=== PATIENT | female | born 1930 | race Caucasian/White ===

== ENCOUNTER 2018-07-21 14:29 | Emergency (ER) | payer BC, OTHER ==
[~2018-07-21] VITALS: Ht 157.5 cm; Wt 104.3 kg
[~2018-07-21 14:29] MED LIST: ALBU90OI; ALBUIS INH; AMIT10 PO; AMIT25 PO; AMLO10 PO; AMLO5 PO; ASPI325 PO; ASPI81CH PO; ATIVAN; ATOR40TA PO; AZIT250 PO; BUDE.5 INH; BUDE6HFA INH; CHOL10002 PO; CLON.1 PO; COMBIVENT RESPIM4 GM INH; DOCU100 PO; HYDCHL25; HYDR1TAB94 PO; HYDROCHLOROTHIAZIDE; LAVAP17G PO; LEVFLO500 PO; LISI20; LISI5 PO; LISINOPRIL; LORA1; LORA1 PO; Lopressor 25 mg25 MG PO; METR500 PO; MULVITMIND PO; NYST100SU PO; Neurontin300 MG PO; OMNICEF; Omeprazole20 M1; POTASSIUM CL; PRED10 PO; PROM25 PO; PSEHYDGUAL PO
[2018-07-21] MEDS ORDERED: LOSA50 PO (15:02)
[2018-07-21] MEDS ORDERED: HYDCHL12.5 PO (15:03)
[2018-07-21 15:22] LABS: BASOPHILS ABSOLUTE AUTO 0.03 K/mm3 (0.00-0.23); BASOPHILS PERCENT AUTO 0 % (0-2); EOSINOPHILS ABSOLUTE AUTO 0.03 K/mm3 (0.00-0.68); EOSINOPHILS PERCENT AUTO 0 % (0-6); Hematocrit 38.1 % (33.0-51.0); Hemoglobin 12.1 g/dL (11.5-16.0); IMMATURE GRAN ABSOLUTE AUTO 0.03 K/mm3 (0.00-0.10); IMMATURE GRAN PERCENT AUTO 0 % (0-1); LYMPHOCYTES ABSOLUTE AUTO 2.08 K/mm3 (0.84-5.20); LYMPHOCYTES PERCENT AUTO 23 % (21-46); MONOCYTES ABSOLUTE AUTO 0.99 K/mm3 (0.16-1.47); MONOCYTES PERCENT AUTO 11 % (4-13); Mean Corpuscular HGB 28.9 pg (26.0-34.0); Mean Corpuscular HGB Conc 31.8 g/dL (31.5-36.5); Mean Corpuscular Volume 91 fL (80-100); Mean Platelet Volume 11.2 fL (9.1-12.4); NEUTROPHILS PERCENT AUTO 65 % (41-73); Platelet Count 227 K/mm3 (150-400); RDW Coefficient Variation 12.5 % (11.7-14.2); RDW Standard Deviation 41.1 fL (35.1-46.3); Red Blood Cell Count 4.19 M/mm3 (3.80-5.20); White Blood Cell Count 9.06 K/mm3 (4.00-11.30)
[2018-07-21 15:40] LABS: Albumin, Blood 3.7 g/dL (3.4-5.0); Albumin/Globulin Ratio 1.1 (0.8-1.8); Bilirubin, Total 0.4 mg/dL (0.1-1.0); Calcium, Blood 9.3 mg/dL (8.5-10.1); Creatinine, Blood 1.25 mg/dL (0.40-1.00); Globulin, Blood 3.3 g/dL (2.2-4.0); Potassium, Blood 4.3 mmol/L (3.5-5.5)
== END 2018-07-21 19:07 | disposition home or self-care (01) ==
LOC: ER 14:29
PROVIDERS: Physician Assistant
DX: J44.9 Chronic obstructive pulmonary disease, unspecified (principal); Z88.0 Allergy status to penicillin; Z88.8 Allergy status to other drugs, medicaments and biological substances; Z79.899 Other long term (current) drug therapy; Z79.82 Long term (current) use of aspirin; I10 Essential (primary) hypertension; E78.5 Hyperlipidemia, unspecified; F32.9 Major depressive disorder, single episode, unspecified; F17.200 Nicotine dependence, unspecified, uncomplicated
CPT/HCPCS: 36415; 71046; 71260; 80053; 83880; 84484; 85025; 93005; 93010; 96360-59; 96361; 99284-25; J7030; Q9967

== ENCOUNTER 2018-10-26 15:52 | Inpatient (IN) | payer MEDICARE, SELFPAY ==
[~2018-10-26] VITALS: Ht 157.5 cm; Wt 108.2 kg
[~2018-10-26 15:52] MED LIST changes: +HYDCHL12.5 PO; +LOSA50 PO
[2018-10-26 16:28] LABS: BASOPHILS ABSOLUTE AUTO 0.03 K/mm3 (0.00-0.23); BASOPHILS PERCENT AUTO 0 % (0-2); EOSINOPHILS ABSOLUTE AUTO 0.03 K/mm3 (0.00-0.68); EOSINOPHILS PERCENT AUTO 0 % (0-6); Hematocrit 43.5 % (33.0-51.0); Hemoglobin 13.7 g/dL (11.5-16.0); IMMATURE GRAN ABSOLUTE AUTO 0.08 K/mm3 (0.00-0.10); IMMATURE GRAN PERCENT AUTO 1 % (0-1); LYMPHOCYTES ABSOLUTE AUTO 2.44 K/mm3 (0.84-5.20); LYMPHOCYTES PERCENT AUTO 20 % (21-46); MONOCYTES PERCENT AUTO 3 % (4-13); Mean Corpuscular HGB 29.2 pg (26.0-34.0); Mean Corpuscular HGB Conc 31.5 g/dL (31.5-36.5); Mean Corpuscular Volume 93 fL (80-100); Mean Platelet Volume 10.8 fL (9.1-12.4); NEUTROPHILS ABSOLUTE AUTO 9.22 K/mm3 (1.96-9.15); NEUTROPHILS PERCENT AUTO 76 % (41-73); Platelet Count 333 K/mm3 (150-400); RDW Coefficient Variation 12.4 % (11.7-14.2); RDW Standard Deviation 42.2 fL (35.1-46.3); Red Blood Cell Count 4.69 M/mm3 (3.80-5.20)
[2018-10-26 16:51] LABS: Alanine Aminotransfer (ALT/SGP 21 U/L (12-78); Albumin, Blood 3.7 g/dL (3.4-5.0); Alk Phos 68 U/L (50-136); Anion Gap 13 mmol/L (6-16); Aspartate Aminotrans (AST/SGOT 31 U/L (12-37); Blood Urea Nitrogen 22 mg/dL (8-24); Bun/Creatinine Ratio 14.8 (12.0-20.0); CO2, Blood 24 mmol/L (21-32); Calcium, Blood 9.7 mg/dL (8.5-10.1); Chloride, Blood 99 mmol/L (98-108); Creatinine, Blood 1.49 mg/dL (0.40-1.00); Globulin, Blood 3.6 g/dL (2.2-4.0); Glomerular Filtration Rate 35 (60-); Glucose, Blood 268 mg/dL (70-99); Potassium, Blood 4.7 mmol/L (3.5-5.5); Sodium, Blood 136 mmol/L (136-145); Total Protein, Blood 7.3 g/dL (6.4-8.2); Troponin I <0.015 ng/mL (0.000-0.040)
[2018-10-26] MEDS ORDERED: LORA1 PO (17:53)
[2018-10-26] MEDS ORDERED: ZESTORETIC 20-251 EA (17:53)
[2018-10-26 17:55] LABS: Base Excess Venous -11.2 mmol/L; Bicarbonate Venous 16.5 mmol/L (24.0-30.0); PCO2 Venous 31.5 mmHg (38-42); PO2 Venous 160 mmHg (38-42)
--- NOTE | 2018-10-27 06:35 | NUR ---
a+o, ns still infusing at 75 ml/h, 2L via nc, no major medical changes noted during shift, nausea but no diarrha reported during shift, cooperative with staff, will continue to montitor and treat until provide bsr to day shift nurse
[2018-10-27 08:34] LABS: BASOPHILS ABSOLUTE AUTO 0.03 K/mm3 (0.00-0.23); BASOPHILS PERCENT AUTO 0 % (0-2); EOSINOPHILS PERCENT AUTO 0 % (0-6); Hemoglobin 11.9 g/dL (11.5-16.0); IMMATURE GRAN ABSOLUTE AUTO 0.14 K/mm3 (0.00-0.10); IMMATURE GRAN PERCENT AUTO 1 % (0-1); LYMPHOCYTES ABSOLUTE AUTO 1.51 K/mm3 (0.84-5.20); LYMPHOCYTES PERCENT AUTO 7 % (21-46); MONOCYTES ABSOLUTE AUTO 1.15 K/mm3 (0.16-1.47); MONOCYTES PERCENT AUTO 6 % (4-13); Mean Corpuscular HGB 29.2 pg (26.0-34.0); Mean Corpuscular HGB Conc 32.2 g/dL (31.5-36.5); Mean Corpuscular Volume 91 fL (80-100); Mean Platelet Volume 10.3 fL (9.1-12.4); NEUTROPHILS PERCENT AUTO 86 % (41-73); Platelet Count 303 K/mm3 (150-400); RDW Coefficient Variation 12.5 % (11.7-14.2); RDW Standard Deviation 41.1 fL (35.1-46.3); Red Blood Cell Count 4.08 M/mm3 (3.80-5.20); White Blood Cell Count 20.33 K/mm3 (4.00-11.30)
[2018-10-27 08:55] LABS: Albumin, Blood 3.3 g/dL (3.4-5.0); Bilirubin, Total 0.4 mg/dL (0.1-1.0); Bun/Creatinine Ratio 17.2 (12.0-20.0); Calcium, Blood 8.3 mg/dL (8.5-10.1); Creatinine, Blood 2.32 mg/dL (0.40-1.00); Globulin, Blood 3.4 g/dL (2.2-4.0); Potassium, Blood 3.9 mmol/L (3.5-5.5); Total Protein, Blood 6.7 g/dL (6.4-8.2)
[2018-10-27 10:59] LABS: International Normalized Ratio 1.04
--- NOTE | 2018-10-27 13:01 | NUR ---
NURSING PCU DAYSHIFT: Assumed care of pt at approx 1230. Arrived from medical unit via bed accompanied by staff x2. General weakness noted, assistance required for repositioning. Denies any pain/discomfort at rest. Skin is fragile, no breakdown noted, scattered bruises to UE's. Tele in place, NSR, no c/o CP/pressure, SBP 130's, trace BLE edema. L/S dim t/o w/minimal air movement noted, c/o dyspnea w/minimal exertion, O2 sat mid 90's on 3L NC, occ productive cough. Abd significantly distended, BT tympanic, and firm and nontender, voiding w/o difficulty per pt. PIV x1, hep gtt infusing at 15u/kg/hr (22.8 mls/hr) per pharmacy dosing. NS w/KCL scheduled to infuse at 75cc/hr once additional IV access is obtained. Daughters x2 currently at bedside. Pt and daughters deny any current needs or questions regarding plan of care. Call light in reach and pt is able to use w/o difficulty. RT at bedside for assessment and breathing tx. No s/s of acute distress at this time, cont to monitor for any changes.
--- NOTE | 2018-10-27 13:19 | NUR ---
TRANSFER NOTE HANDOFF REPORT GIVEN AT BEDSIDE TO PCU NURSE OLSON. PT TRANSFERED WITH HEPARIN DRIP RUNNING ORDERED. PT TRANSFERED WITH O2 RUNNING ORDERED. PERSONAL POSSESSIONS GATHERED BY FAMILY AND TRANSFERED WITH THEM. I AND THE VERTICAL MILL OPERATOR ACCOMPANIED THE PT TO PCU. NURSE OLSON HAD NO FURTHER QUESTIONS.
--- NOTE | 2018-10-27 16:00 | NUR ---
echocardiogram complete
--- NOTE | 2018-10-27 17:29 | NUR ---
NURSING PCU DAYSHIFT SUMMARY: No significant changes noted t/o the shift. Respiratory and cardiac status unchanged. Pt spent much of the afternoon sitting on edge of bed visiting w/family. No EKG changes noted, denies dizziness/light headedness. Chest CT, LE doppler, f/u troponin, and ECHO completed as ordered, results discussed w/PMD, new d/o received. Cardiology consult called for a.m., hep gtt and IVF continue to infuse, pt updated regarding plan of care. No s/s of acute distress at this time. Pt denies any current questions/needs. Call light in reach, cont to monitor until rpt is given to NOC RN.
[2018-10-27 20:43] LABS: Source, Urine Clean Catch
[2018-10-27 20:45] LABS: Appearance, Urine Clear (Clear); Bilirubin, Urine Neg (Neg); Blood, Urine Neg (Neg); Color, Urine Amber (P-Yellow); Glucose Qualitative, Urine Neg (Neg); Ketones, Urine Neg (Neg); Leukocyte Esterase, Urine Neg (Neg); Nitrite, Urine Neg (Neg); Protein, Urine Neg (Neg); Specific Gravity, Urine 1.015 (1.003-1.022); Urobilinogen, Urine NORM (Normal)
[2018-10-28 05:36] LABS: BASOPHILS ABSOLUTE AUTO 0.04 K/mm3 (0.00-0.23); BASOPHILS PERCENT AUTO 0 % (0-2); EOSINOPHILS PERCENT AUTO 0 % (0-6); Hematocrit 35.3 % (33.0-51.0); Hemoglobin 11.3 g/dL (11.5-16.0); IMMATURE GRAN ABSOLUTE AUTO 0.18 K/mm3 (0.00-0.10); IMMATURE GRAN PERCENT AUTO 1 % (0-1); LYMPHOCYTES ABSOLUTE AUTO 1.17 K/mm3 (0.84-5.20); LYMPHOCYTES PERCENT AUTO 5 % (21-46); MONOCYTES ABSOLUTE AUTO 1.27 K/mm3 (0.16-1.47); MONOCYTES PERCENT AUTO 6 % (4-13); Mean Corpuscular HGB 29.4 pg (26.0-34.0); Mean Corpuscular Volume 92 fL (80-100); NEUTROPHILS PERCENT AUTO 88 % (41-73); Platelet Count 302 K/mm3 (150-400); RDW Coefficient Variation 12.6 % (11.7-14.2); RDW Standard Deviation 42.4 fL (35.1-46.3); Red Blood Cell Count 3.84 M/mm3 (3.80-5.20); White Blood Cell Count 21.96 K/mm3 (4.00-11.30)
[2018-10-28 05:52] LABS: International Normalized Ratio 0.99; Prothrombin Time Results 10.5 Sec (9.7-11.5)
[2018-10-28 06:00] LABS: Magnesium, Blood 2.4 mg/dL (1.6-2.4); Troponin I 0.36 ng/mL (0.000-0.040)
[2018-10-28 06:03] LABS: Albumin, Blood 3.3 g/dL (3.4-5.0); Albumin/Globulin Ratio 0.9 (0.8-1.8); Bilirubin, Total 0.4 mg/dL (0.1-1.0); Bun/Creatinine Ratio 23.5 (12.0-20.0); Calcium, Blood 8.6 mg/dL (8.5-10.1); Creatinine, Blood 1.62 mg/dL (0.40-1.00); Globulin, Blood 3.7 g/dL (2.2-4.0); Potassium, Blood 5.4 mmol/L (3.5-5.5)
--- NOTE | 2018-10-28 07:55 | NUR ---
SHIFT SUMMARY PATIENT PLEASENT THROUGHOUT THE NIGHT. AT THE BEGINNING OF THE NIGHT PATIENT STARTED GETTING ANXIOUS ABOUT HOW ALL THE TESTS WERE NOT GIVING HER ANSWERS TO WHAT WAS GOING ON WITH HER. PATIENT STATED SHE NO LONGER WANTED TO HAVE HER HEPARIN RUNNING. RN TALKED WITH PATIENT ABOUT IMPORTANCE OF HEPARIN AND THE PROS AND CONS ABOUT STOPPING THE HEPARIN. AFTER THE CONVERSATION PATIENT AGREED TO KEEP THE HEPARIN RUNNING THROUGHOUT THE NIGHT AND TO TALK WITH THE DR ABOUT IT IN THE MORNING. PATIENT APPEARED TO SLEEP WELL THROUGHOUT THE NIGHT. PATIENT STATED THAT SHE DID SLEEP BETTER TONIGHT THAN THE PREVIOUS NIGHT. IV FLUIDS AND HEPARIN RUNNING PER ORDERS. VITAL SIGNS CHARTED. PATIENT UP TO THE BATHROOM SEVERAL TIMES WITH FWW AND SBA FOR LINES. REPORT GIVEN TO ONCOMING RN.
--- NOTE | 2018-10-28 18:59 | NUR ---
PT HAD A GOOD DAY TODAY, DR ORDERED BLOOD CULTURES AND RESP PANEL, SENT SWAB TO LAB AND WILL AWAIT ORDERS. STARTED ABX PER ORDER. PT FAMILY AT BEDSIDE THROUGHOUT THE DAY. PT CURRENTLY ON 1 LPM O2 VIA NC. WORKED ON TITRATING DOWN O2 AND EDUCATING ON O2 LEVELS AT REST. WHEN PT LYING IN BED, O2 SAT IS 95-98%, PT UNDERSTANDS USE WHEN GETTING UP AND WILL MONITOR O2 LEVELS AT REST AND PERHAPS FOLLOW UP WITH HER ONLINE TUTOR. PT UP WITH FWW TO BATHROOM. USES CALL LIGHT APPROPRIATELY AND EXPRESSED NEEDS. WILL CONTINUE TO MONITOR AND GIVE REPORT TO NOC RN.
[2018-10-28 19:50] LABS: Adenovirus Not Detected (NOT DETECT); Bordetella pertussis Not Detected (NOT DETECT); Chlamydophila pneumoniae Not Detected (NOT DETECT); Coronavirus 229E Not Detected (NOT DETECT); Coronavirus HKU1 Not Detected (NOT DETECT); Coronavirus NL63 Not Detected (NOT DETECT); Coronavirus OC43 Not Detected (NOT DETECT); Human Metapneumovirus Not Detected (NOT DETECT); Human Rhinovirus/Enterovirus Not Detected (NOT DETECT); Influenza A Not Detected (NOT DETECT); Influenza A/2009-H1 Not Detected (NOT DETECT); Influenza A/H1 Not Detected (NOT DETECT); Influenza A/H3 Not Detected (NOT DETECT); Influenza B Not Detected (NOT DETECT); Mycoplasma pneumoniae Not Detected (NOT DETECT); Parainfluenza Virus 1 Not Detected (NOT DETECT); Parainfluenza Virus 2 Not Detected (NOT DETECT); Parainfluenza Virus 3 Not Detected (NOT DETECT); Parainfluenza Virus 4 Not Detected (NOT DETECT); Respiratory Syncytial Virus Not Detected (NOT DETECT)
[2018-10-29 04:43] LABS: BASOPHILS ABSOLUTE AUTO 0.04 K/mm3 (0.00-0.23); BASOPHILS PERCENT AUTO 0 % (0-2); EOSINOPHILS PERCENT AUTO 0 % (0-6); Hematocrit 34.3 % (33.0-51.0); Hemoglobin 10.6 g/dL (11.5-16.0); IMMATURE GRAN ABSOLUTE AUTO 0.33 K/mm3 (0.00-0.10); IMMATURE GRAN PERCENT AUTO 2 % (0-1); LYMPHOCYTES ABSOLUTE AUTO 0.96 K/mm3 (0.84-5.20); LYMPHOCYTES PERCENT AUTO 5 % (21-46); MONOCYTES ABSOLUTE AUTO 1.78 K/mm3 (0.16-1.47); MONOCYTES PERCENT AUTO 10 % (4-13); Mean Corpuscular HGB 28.6 pg (26.0-34.0); Mean Corpuscular HGB Conc 30.9 g/dL (31.5-36.5); Mean Corpuscular Volume 93 fL (80-100); Mean Platelet Volume 10.3 fL (9.1-12.4); NEUTROPHILS ABSOLUTE AUTO 15.69 K/mm3 (1.96-9.15); NEUTROPHILS PERCENT AUTO 83 % (41-73); NRBC ABSOLUTE 0.02 K/mm3 (0.00-0.02); NRBC Auto 0.1 /100 WBC (0.0-0.2); Platelet Count 264 K/mm3 (150-400); RDW Coefficient Variation 12.9 % (11.7-14.2); RDW Standard Deviation 43.6 fL (35.1-46.3); Red Blood Cell Count 3.71 M/mm3 (3.80-5.20)
[2018-10-29 04:59] LABS: Albumin, Blood 3.2 g/dL (3.4-5.0); Anion Gap 7 mmol/L (6-16); Blood Urea Nitrogen 35 mg/dL (8-24); Bun/Creatinine Ratio 24.8 (12.0-20.0); CO2, Blood 28 mmol/L (21-32); Calcium, Blood 8.9 mg/dL (8.5-10.1); Chloride, Blood 104 mmol/L (98-108); Creatinine, Blood 1.41 mg/dL (0.40-1.00); Glomerular Filtration Rate 38 (60-); Glucose, Blood 96 mg/dL (70-99); Magnesium, Blood 2.2 mg/dL (1.6-2.4); Phosphorus, Blood 2.8 mg/dL (2.5-4.9); Potassium, Blood 4.4 mmol/L (3.5-5.5); Sodium, Blood 139 mmol/L (136-145)
--- NOTE | 2018-10-29 06:14 | NUR ---
SHIFT SUMMARY PATIENT PLEASENT AND COOPERATIVE THROUGHOUT THE NIGHT. PATIENT APPEARED TO SLEEP WELL LAST NIGHT. PATIENT STATED THAT SHE FEELS SHE SLEPT WELL. PATIENT UP TO THE BATHROOM WITH SBA AND FWW SEVERAL TIMES. IV FLUIDS RUNNING PER ORDERS. PATIENT CURRENTLY SITTING UP AT THE EDGE OF THE BED, CALL LIGHT WITHIN REACH. VITAL SIGNS CHARTED. WILL CONTINUE TO MONITOR PATIENT AND REPORT TO ONCOMING RN.
[2018-10-29] MEDS ORDERED: CARV3.125 PO (12:03)
[2018-10-29] MEDS ORDERED: LEVFLO500 PO (12:05)
[2018-10-29] MEDS ORDERED: MIRALAX17 GM PO (12:10)
--- NOTE | 2018-10-29 12:55 | NUR ---
DISCHARGE NOTE PT STABLE FOR DISCHARGE. POWERGLIDE REMOVED. DISCHARGE INSTRUCTIONS REVIEWED WITH PT AND FAMILY. PT AND FAMILY VERBALIZE UNDERSTANDING AND DENY QUESTIONS. PT DISCHARGED VIA WHEELCHAIR TO WAITING CAR.
== END 2018-10-29 13:05 | disposition home or self-care (01) | DRG 189 ==
LOC: ER 15:52 → PCU 18:09 → MEDS 18:09 → PCU 10-27 12:19
PROVIDERS: Emergency Medicine; Internal Medicine Gastroenterology; ADMIT Internal Medicine
DX: J96.21 Acute and chronic respiratory failure with hypoxia (principal); I21.19 ST elevation (STEMI) myocardial infarction involving other coronary artery of inferior wall; J44.1 Chronic obstructive pulmonary disease with (acute) exacerbation; N17.9 Acute kidney failure, unspecified; R65.10 Systemic inflammatory response syndrome (SIRS) of non-infectious origin without acute organ dysfunction; R79.89 Other specified abnormal findings of blood chemistry; Z99.81 Dependence on supplemental oxygen; E78.5 Hyperlipidemia, unspecified; H40.9 Unspecified glaucoma; F17.210 Nicotine dependence, cigarettes, uncomplicated; K59.09 Other constipation; K21.9 Gastro-esophageal reflux disease without esophagitis; I12.9 Hypertensive chronic kidney disease with stage 1 through stage 4 chronic kidney disease, or unspecified chronic kidney disease; N18.3 Chronic kidney disease, stage 3 (moderate)
CPT/HCPCS: 0099U; 36415; 71045; 71046; 78582; 80053; 80069; 81003; 82803; 83735; 83880; 84145; 84484; 85025; 85379; 85610; 85730; 87040; 93005; 93010; 93308; 93321; 93970; 94640; 94760; 96361; 96374; 96375; 99285-25; A9540; A9558; C1751; J1644; J1956; J2405; J2930; J3480; J7030

== ENCOUNTER 2020-01-05 02:18 | Inpatient (IN) | payer MEDICARE ==
[~2020-01-05] VITALS: Ht 157.5 cm; Wt 111.1 kg
[~2020-01-05 02:18] MED LIST changes: +CARV3.125 PO; +MIRALAX17 GM PO; +ZESTORETIC 20-251 EA
[2020-01-05 02:46] LABS: BASOPHILS ABSOLUTE AUTO 0.02 K/mm3 (0.00-0.23); BASOPHILS PERCENT AUTO 0 % (0-2); EOSINOPHILS ABSOLUTE AUTO 0.26 K/mm3 (0.00-0.68); EOSINOPHILS PERCENT AUTO 2 % (0-6); Hematocrit 35.5 % (33.0-51.0); Hemoglobin 10.8 g/dL (11.5-16.0); IMMATURE GRAN ABSOLUTE AUTO 0.04 K/mm3 (0.00-0.10); IMMATURE GRAN PERCENT AUTO 0 % (0-1); LYMPHOCYTES ABSOLUTE AUTO 3.31 K/mm3 (0.84-5.20); LYMPHOCYTES PERCENT AUTO 31 % (21-46); MONOCYTES ABSOLUTE AUTO 1.44 K/mm3 (0.16-1.47); MONOCYTES PERCENT AUTO 13 % (4-13); Mean Corpuscular HGB 28.3 pg (26.0-34.0); Mean Corpuscular HGB Conc 30.4 g/dL (31.5-36.5); Mean Corpuscular Volume 93 fL (80-100); Mean Platelet Volume 10.7 fL (9.1-12.4); NEUTROPHILS ABSOLUTE AUTO 5.69 K/mm3 (1.96-9.15); NEUTROPHILS PERCENT AUTO 53 % (41-73); Platelet Count 230 K/mm3 (150-400); RDW Coefficient Variation 12.9 % (11.7-14.2); Red Blood Cell Count 3.81 M/mm3 (3.80-5.20); White Blood Cell Count 10.76 K/mm3 (4.00-11.30)
[2020-01-05 03:07] LABS: Alanine Aminotransfer (ALT/SGP 18 U/L (12-78); Albumin, Blood 3.4 g/dL (3.4-5.0); Albumin/Globulin Ratio 0.9 (0.8-1.8); Alk Phos 69 U/L (50-136); Anion Gap 3 mmol/L (6-16); Aspartate Aminotrans (AST/SGOT 22 U/L (12-37); Bilirubin, Total 0.4 mg/dL (0.1-1.0); Blood Urea Nitrogen 23 mg/dL (8-24); Bun/Creatinine Ratio 17.3 (12.0-20.0); CO2, Blood 39 mmol/L (21-32); Calcium, Blood 9.8 mg/dL (8.5-10.1); Chloride, Blood 98 mmol/L (98-108); Creatinine, Blood 1.33 mg/dL (0.40-1.00); Globulin, Blood 3.7 g/dL (2.2-4.0); Glomerular Filtration Rate 40 (60-); Glucose, Blood 123 mg/dL (70-99); Potassium, Blood 3.8 mmol/L (3.5-5.5); Sodium, Blood 140 mmol/L (136-145); Total Protein, Blood 7.1 g/dL (6.4-8.2); Troponin I <0.015 ng/mL (0.000-0.040)
[2020-01-05] MEDS ORDERED: AMLO5 PO (05:11)
[2020-01-05] MEDS ORDERED: HYDCHL25 PO (05:11)
[2020-01-05] MEDS ORDERED: LOSA50 PO (05:13)
[2020-01-05] MEDS ORDERED: AZIT250 PO (05:16)
[2020-01-05] MEDS ORDERED: ATOR20 PO (05:16)
[2020-01-05] MEDS ORDERED: Amitriptyline H25 MG PO (06:12)
[2020-01-05] MEDS ORDERED: ASPI325 PO (06:13)
[2020-01-05] MEDS ORDERED: Vitamin D2000 UNIT PO (06:14)
[2020-01-05 11:20] LABS: Adenovirus Not Detected (NOT DETECT); Bordetella pertussis Not Detected (NOT DETECT); Chlamydophila pneumoniae Not Detected (NOT DETECT); Coronavirus 229E Not Detected (NOT DETECT); Coronavirus HKU1 Not Detected (NOT DETECT); Coronavirus NL63 Not Detected (NOT DETECT); Coronavirus OC43 Not Detected (NOT DETECT); Human Metapneumovirus Not Detected (NOT DETECT); Human Rhinovirus/Enterovirus Not Detected (NOT DETECT); Influenza A/2009-H1 Not Detected (NOT DETECT); Influenza A/H1 Not Detected (NOT DETECT); Influenza A/H3 Not Detected (NOT DETECT); Influenza B Not Detected (NOT DETECT); Mycoplasma pneumoniae Not Detected (NOT DETECT); Parainfluenza Virus 1 Not Detected (NOT DETECT); Parainfluenza Virus 2 Not Detected (NOT DETECT); Parainfluenza Virus 3 Not Detected (NOT DETECT); Parainfluenza Virus 4 Not Detected (NOT DETECT); Respiratory Syncytial Virus Not Detected (NOT DETECT); SARS-Cov-2 (COVID-19), BioFire Not Detected (NOT DETECT)
--- NOTE | 2020-01-05 17:17 | NUR ---
SHIFT SUMMARY PATIENT ALERT AND ORIENTED. SHE IS INDEPENDENT IN THE ROOM. CALLS APPRORPIATELY. AT HOME THE PATIENT WEARS 2L O2 VIA NC. SHE IS CURRENTLY ON 3L O2 VIA NC. SHE DENIES CHEST DISCOMFORT OR SHORTNESS OF BREATH AT THIS TIME. SHE DOES NOTE THAT SHE IS DYSPNEIC UPON EXERTION.
--- NOTE | 2020-01-06 04:12 | NUR ---
CARGO HANDLER SUMMARY PT DENIED ANY CHEST PAIN OR SOB DURING THE SHIFT. PT'S O2 SAT'S ARE >89 ON 3L VIA NC. PT DENIED ANY PAIN OR NAUSEA DURING THE NIGHT. PT VERBALIZED THAT SHE HOPES TO GO HOME BUT IS APPREHENSIVE ABOUT HER OXYGEN SATURATION DROPPING AGAIN ONCE SHE RETURNS HOME. PT WAS EDUCATED ON THE S/S OF HYPOXIA AND REPORTED THAT SHE HAS A FINGER BIOX AT HOME BUT NEEDS TO GET A NEW ONE. PT IS RESTING COMFORTABLY W CALL LIGHT WITHIN REACH.
[2020-01-06 05:09] LABS: BASOPHILS ABSOLUTE AUTO 0.02 K/mm3 (0.00-0.23); BASOPHILS PERCENT AUTO 0 % (0-2); EOSINOPHILS PERCENT AUTO 0 % (0-6); Hematocrit 31.6 % (33.0-51.0); Hemoglobin 9.8 g/dL (11.5-16.0); IMMATURE GRAN ABSOLUTE AUTO 0.14 K/mm3 (0.00-0.10); IMMATURE GRAN PERCENT AUTO 1 % (0-1); LYMPHOCYTES ABSOLUTE AUTO 1.13 K/mm3 (0.84-5.20); LYMPHOCYTES PERCENT AUTO 7 % (21-46); MONOCYTES ABSOLUTE AUTO 0.38 K/mm3 (0.16-1.47); MONOCYTES PERCENT AUTO 2 % (4-13); Mean Corpuscular HGB 27.9 pg (26.0-34.0); Mean Corpuscular Volume 90 fL (80-100); Mean Platelet Volume 11.2 fL (9.1-12.4); NEUTROPHILS ABSOLUTE AUTO 14.38 K/mm3 (1.96-9.15); NEUTROPHILS PERCENT AUTO 90 % (41-73); Platelet Count 235 K/mm3 (150-400); RDW Coefficient Variation 12.8 % (11.7-14.2); Red Blood Cell Count 3.51 M/mm3 (3.80-5.20); White Blood Cell Count 16.05 K/mm3 (4.00-11.30)
[2020-01-06 05:30] LABS: Albumin, Blood 3.2 g/dL (3.4-5.0); Anion Gap 5 mmol/L (6-16); Blood Urea Nitrogen 28 mg/dL (8-24); Bun/Creatinine Ratio 26.7 (12.0-20.0); CO2, Blood 35 mmol/L (21-32); Calcium, Blood 9.7 mg/dL (8.5-10.1); Chloride, Blood 97 mmol/L (98-108); Creatinine, Blood 1.05 mg/dL (0.40-1.00); Glomerular Filtration Rate 53 (60-); Glucose, Blood 157 mg/dL (70-99); Magnesium, Blood 2.1 mg/dL (1.6-2.4); Phosphorus, Blood 2.8 mg/dL (2.5-4.9); Potassium, Blood 3.1 mmol/L (3.5-5.5); Sodium, Blood 137 mmol/L (136-145)
[2020-01-06] MEDS ORDERED: AZIT200SU PO (15:08)
[2020-01-06] MEDS ORDERED: HYDCHL25 PO (15:10)
[2020-01-06] MEDS ORDERED: POTA10T PO (15:11)
[2020-01-06] MEDS ORDERED: ALBU2.5V5 INH (15:12)
[2020-01-06] MEDS ORDERED: Prednisone10 MG PO (15:14)
[2020-01-06] MEDS ORDERED: TIOT18 INH (15:17)
[2020-01-06] MEDS ORDERED: SYMBICORT 160-4.6 GM INH (15:19)
== END 2020-01-06 15:51 | disposition home or self-care (01) | DRG 189 ==
LOC: ER 02:18 → MEDS 04:56 → ER 05:46 → MEDS 05:58
PROVIDERS: Emergency Medicine; Internal Medicine Gastroenterology; ADMIT Internal Medicine
DX: J96.21 Acute and chronic respiratory failure with hypoxia (principal); J44.1 Chronic obstructive pulmonary disease with (acute) exacerbation; Z68.41 Body mass index [BMI] 40.0-44.9, adult; J96.22 Acute and chronic respiratory failure with hypercapnia; I12.9 Hypertensive chronic kidney disease with stage 1 through stage 4 chronic kidney disease, or unspecified chronic kidney disease; N18.30 Chronic kidney disease, stage 3 unspecified; G47.33 Obstructive sleep apnea (adult) (pediatric); I87.2 Venous insufficiency (chronic) (peripheral); Z20.828 Contact with and (suspected) exposure to other viral communicable diseases; E78.5 Hyperlipidemia, unspecified; F41.9 Anxiety disorder, unspecified; Z87.891 Personal history of nicotine dependence; Z79.82 Long term (current) use of aspirin
CPT/HCPCS: 0202U; 36415; 71046; 80053; 80069; 82947; 83735; 83880; 84484; 85025; 93005; 93010; 94640; 94644; 94760; 97110; 97116; 97161; 99285-25; A9270-GY; J0456; J0696; J1650; J2930; J7050

== ENCOUNTER 2020-11-09 04:07 | Emergency (ER) | payer MEDICARE ==
[~2020-11-09] VITALS: Ht 157.5 cm; Wt 103.9 kg
[~2020-11-09 04:07] MED LIST changes: +ALBU2.5V5 INH; +ATOR20 PO; +AZIT200SU PO; +Amitriptyline H25 MG PO; +HYDCHL25 PO; +POTA10T PO; +Prednisone10 MG PO; +SYMBICORT 160-4.6 GM INH; +TIOT18 INH; +Vitamin D2000 UNIT PO
[2020-11-09 04:33] LABS: BASOPHILS ABSOLUTE AUTO 0.03 K/mm3 (0.00-0.23); BASOPHILS PERCENT AUTO 0 % (0-2); EOSINOPHILS PERCENT AUTO 0 % (0-6); Hemoglobin 12.1 g/dL (11.5-16.0); IMMATURE GRAN PERCENT AUTO 1 % (0-1); LYMPHOCYTES ABSOLUTE AUTO 1.57 K/mm3 (0.84-5.20); LYMPHOCYTES PERCENT AUTO 11 % (21-46); MONOCYTES PERCENT AUTO 7 % (4-13); Mean Corpuscular HGB 28.4 pg (26.0-34.0); Mean Corpuscular HGB Conc 31.8 g/dL (31.5-36.5); Mean Corpuscular Volume 89 fL (80-100); NEUTROPHILS PERCENT AUTO 81 % (41-73); Platelet Count 248 K/mm3 (150-400); RDW Coefficient Variation 13.2 % (11.7-14.2); RDW Standard Deviation 42.7 fL (35.1-46.3); Red Blood Cell Count 4.26 M/mm3 (3.80-5.20)
[2020-11-09 04:47] LABS: Alanine Aminotransfer (ALT/SGP 21 U/L (12-78); Albumin, Blood 3.5 g/dL (3.4-5.0); Albumin/Globulin Ratio 1.1 (0.8-1.8); Alk Phos 65 U/L (50-136); Anion Gap 4 mmol/L (6-16); Aspartate Aminotrans (AST/SGOT 9 U/L (12-37); Bilirubin, Total 0.3 mg/dL (0.1-1.0); Blood Urea Nitrogen 29 mg/dL (8-24); Bun/Creatinine Ratio 20.7 (12.0-20.0); CO2, Blood 36 mmol/L (21-32); Calcium, Blood 10.3 mg/dL (8.5-10.1); Chloride, Blood 101 mmol/L (98-108); Globulin, Blood 3.1 g/dL (2.2-4.0); Glomerular Filtration Rate 35 (60-); Glucose, Blood 133 mg/dL (70-99); Potassium, Blood 3.4 mmol/L (3.5-5.5); Sodium, Blood 141 mmol/L (136-145); Total Protein, Blood 6.6 g/dL (6.4-8.2); Troponin I <0.015 ng/mL (0.000-0.040)
== END 2020-11-09 07:15 | disposition home or self-care (01) ==
LOC: ER 04:07
PROVIDERS: Emergency Medicine
DX: I48.0 Paroxysmal atrial fibrillation (principal); J44.9 Chronic obstructive pulmonary disease, unspecified; I10 Essential (primary) hypertension; D72.829 Elevated white blood cell count, unspecified; E87.6 Hypokalemia; Z88.0 Allergy status to penicillin; Z91.048 Other nonmedicinal substance allergy status; Z79.82 Long term (current) use of aspirin; Z79.899 Other long term (current) drug therapy; Z99.81 Dependence on supplemental oxygen
CPT/HCPCS: 36415; 71045; 80053; 84484; 85025; 93005; 93010; 99285-25

== ENCOUNTER 2021-10-26 07:49 | Inpatient (IN) | payer MEDICARE ==
[~2021-10-26] VITALS: Ht 157.5 cm; Wt 110.7 kg
[~2021-10-26 07:49] MED LIST changes: +CEFD300 PO; +OMEP20ER PO; +XARELTO20 MG PO
[2021-10-26 09:06] LABS: BASOPHILS ABSOLUTE AUTO 0.02 K/mm3 (0.00-0.23); BASOPHILS PERCENT AUTO 0 % (0-2); EOSINOPHILS PERCENT AUTO 0 % (0-6); Hematocrit 26.4 % (33.0-51.0); Hemoglobin 8.2 g/dL (11.5-16.0); IMMATURE GRAN ABSOLUTE AUTO 0.09 K/mm3 (0.00-0.10); IMMATURE GRAN PERCENT AUTO 1 % (0-1); LYMPHOCYTES ABSOLUTE AUTO 0.71 K/mm3 (0.84-5.20); LYMPHOCYTES PERCENT AUTO 4 % (21-46); MONOCYTES ABSOLUTE AUTO 1.79 K/mm3 (0.16-1.47); MONOCYTES PERCENT AUTO 11 % (4-13); Mean Corpuscular HGB 28.6 pg (26.0-34.0); Mean Corpuscular HGB Conc 31.1 g/dL (31.5-36.5); Mean Corpuscular Volume 92 fL (80-100); Mean Platelet Volume 11.3 fL (9.1-12.4); NEUTROPHILS ABSOLUTE AUTO 14.29 K/mm3 (1.96-9.15); NEUTROPHILS PERCENT AUTO 85 % (41-73); Platelet Count 217 K/mm3 (150-400); RDW Coefficient Variation 13.2 % (11.7-14.2); RDW Standard Deviation 44.5 fL (35.1-46.3); Red Blood Cell Count 2.87 M/mm3 (3.80-5.20)
[2021-10-26 09:15] LABS: Albumin, Blood 3.1 g/dL (3.4-5.0); Bilirubin, Total 0.7 mg/dL (0.1-1.0); Calcium, Blood 9.6 mg/dL (8.5-10.1); Creatinine, Blood 1.96 mg/dL (0.40-1.00); Globulin, Blood 3.2 g/dL (2.2-4.0); Potassium, Blood 5.1 mmol/L (3.5-5.5); Total Protein, Blood 6.3 g/dL (6.4-8.2)
--- NOTE | 2021-10-26 17:08 | NUR ---
ER ADMIT 1305 Patient admitted for cellultis RLE. Patient AOx4, forgetful at times but answers questions appropriately. Recurrent falls, bruising/discoloration through out body. Wound to right delt, melo in place, scant yellow drainage observed. Posterior RUE, large skin tear, open. Nonadherent dressings placed over wounds. BLE pitting +2 edema in legs & feet. LLE skin color is pale, scaley. RLE is rudding, bruised. C/o right rib pain from recent fall. MD assessed patient at bedside, ordered ultrasound, labs, results pending. Saturations stable on 3L oxygen, afebrile.
--- NOTE | 2021-10-26 20:44 | NUR ---
[facility] TECH HERE TO TAKE TO RADIOLOGY.
--- NOTE | 2021-10-26 23:16 | NUR ---
IV ANTIBIOTIC INFUSED. NOTE DRESSING OF RIGHT UPPER ARM COMING OFF, NOTE CLEAR, BLOODY DRAINAGE ON DRESSING AND PILLOW CASE. DRESSING CHANGED, PILLOW CHANGED. CALL LIGHT IN REACH.
--- NOTE | 2021-10-27 03:50 | NUR ---
PANEL SEWER SUMMARY IV ANTIBIOTIC INFUSED AT SHIFT COMMENCE AFTER RETURNING TO [facility] FROM RADIOLOGY FOR X-RAY. VOICED SOME PAIN OF LEFT RIB AREA. REPORTEDLY HAD FALLEN PRIOR TO ADMISSION TO HOSPITAL. BILAT LOWER EXT CELLULITIS - RIGHT LOWER LEG FRONT AND BACK, LEFT SIDE - BACK OF CALF S/S CELLULITIS. ALSO NOTED OPEN ABRASION OF RIGHT UPPER EXT, ON EXTERIOR SIDE. SOME BLEEDING NOTED, PREVIOUS DRESSING CHANGED. HAS BEEN REPOSITIONED TO AND FROM BACK TO LEFT SIDE SHE VOICED NOT COMFORTABLE ON RIGHT SIDE. TOLERATES "ICE WATER", VOICED DIDNT WANT RESUCITATION IF SHE STOPPED BREATHING. AGREED TO SPEAK WITH THE MD IN THE AM TO CHANGE CURRENT STATUS. WILL HAVE AM NURSE FOLLOW UP. CALL LIGHT IN REACH.
[2021-10-27 05:03] LABS: BASOPHILS ABSOLUTE AUTO 0.01 K/mm3 (0.00-0.23); BASOPHILS PERCENT AUTO 0 % (0-2); EOSINOPHILS PERCENT AUTO 0 % (0-6); Hematocrit 21.4 % (33.0-51.0); Hemoglobin 6.7 g/dL (11.5-16.0); IMMATURE GRAN ABSOLUTE AUTO 0.05 K/mm3 (0.00-0.10); IMMATURE GRAN PERCENT AUTO 0 % (0-1); LYMPHOCYTES ABSOLUTE AUTO 0.89 K/mm3 (0.84-5.20); LYMPHOCYTES PERCENT AUTO 7 % (21-46); MONOCYTES ABSOLUTE AUTO 1.39 K/mm3 (0.16-1.47); MONOCYTES PERCENT AUTO 11 % (4-13); Mean Corpuscular HGB 28.8 pg (26.0-34.0); Mean Corpuscular HGB Conc 31.3 g/dL (31.5-36.5); Mean Corpuscular Volume 92 fL (80-100); Mean Platelet Volume 11.2 fL (9.1-12.4); NEUTROPHILS ABSOLUTE AUTO 10.62 K/mm3 (1.96-9.15); NEUTROPHILS PERCENT AUTO 82 % (41-73); Platelet Count 179 K/mm3 (150-400); RDW Coefficient Variation 13.3 % (11.7-14.2); RDW Standard Deviation 44.4 fL (35.1-46.3); Red Blood Cell Count 2.33 M/mm3 (3.80-5.20); White Blood Cell Count 12.96 K/mm3 (4.00-11.30)
[2021-10-27 05:50] LABS: Albumin, Blood 2.7 g/dL (3.4-5.0); Albumin/Globulin Ratio 0.9 (0.8-1.8); Bilirubin, Total 0.6 mg/dL (0.1-1.0); Bun/Creatinine Ratio 24.7 (12.0-20.0); Calcium, Blood 8.8 mg/dL (8.5-10.1); Creatinine, Blood 2.31 mg/dL (0.40-1.00); Globulin, Blood 2.9 g/dL (2.2-4.0); Magnesium, Blood 2.4 mg/dL (1.6-2.4); Total Protein, Blood 5.6 g/dL (6.4-8.2)
--- NOTE | 2021-10-27 18:39 | NUR ---
PATIENT UP MULTIPLE TIMES TODAY TO CHAIR. WORKED WITH PT AND OT. UP WITH FWW, GB AND 1-2 ASSIST DEPENDEING ON PAIN LEVEL. PAIN CONTROLLED WITH NORCO AND TYLENOL. VSS, ON 2-3LO2. DRESSING PLACED OVER LISA TO R UPPER ARM. DRESSING TO R ELBOW AREA REMAINS C/D/I. PATIENT TOLERATING CARDIAC DIET. A/OX3, BUT FORGETFUL AT TIMES. CALM AND COOPERATIVE WITH CARE, CALLS APPROPRIATELY FOR ASSISTANCE. 20G IV TO R AC WNL, NS @ 100 ML/HR INFUSING. DAUGHTERS AT BEDSIDE FOR MOST OF THE DAY ASSISTING WITH CARE.
[2021-10-27] MEDS ORDERED: AMIT25 PO (19:16)
[2021-10-27 20:41] LABS: Vancomycin, Trough 13.6 ug/mL (5.0-10.0)
--- NOTE | 2021-10-28 05:12 | NUR ---
SHIFT SUMMARY: PATIENT REPORTS PAIN IN LEFT RIBS 8-9/10 WITH MOVEMENT. PATIENT IS MEDICATED WITH NORCO AND REPORTS GOOD EFFECT. PATIENT IS A HEAVY ASSIST X2 WITH GAIT BELT AND FWW.
[2021-10-28 05:57] LABS: BASOPHILS ABSOLUTE AUTO 0.01 K/mm3 (0.00-0.23); BASOPHILS PERCENT AUTO 0 % (0-2); EOSINOPHILS ABSOLUTE AUTO 0.01 K/mm3 (0.00-0.68); EOSINOPHILS PERCENT AUTO 0 % (0-6); Hematocrit 21.7 % (33.0-51.0); Hemoglobin 6.5 g/dL (11.5-16.0); IMMATURE GRAN ABSOLUTE AUTO 0.05 K/mm3 (0.00-0.10); IMMATURE GRAN PERCENT AUTO 0 % (0-1); LYMPHOCYTES PERCENT AUTO 10 % (21-46); MONOCYTES ABSOLUTE AUTO 1.47 K/mm3 (0.16-1.47); MONOCYTES PERCENT AUTO 12 % (4-13); Mean Corpuscular HGB 27.8 pg (26.0-34.0); Mean Corpuscular Volume 93 fL (80-100); Mean Platelet Volume 11.3 fL (9.1-12.4); NEUTROPHILS ABSOLUTE AUTO 9.69 K/mm3 (1.96-9.15); NEUTROPHILS PERCENT AUTO 78 % (41-73); Platelet Count 206 K/mm3 (150-400); RDW Coefficient Variation 13.3 % (11.7-14.2); RDW Standard Deviation 44.8 fL (35.1-46.3); Red Blood Cell Count 2.34 M/mm3 (3.80-5.20); White Blood Cell Count 12.43 K/mm3 (4.00-11.30)
[2021-10-28 06:46] LABS: Bun/Creatinine Ratio 26.4 (12.0-20.0); Calcium, Blood 8.9 mg/dL (8.5-10.1); Creatinine, Blood 2.35 mg/dL (0.40-1.00); Potassium, Blood 4.7 mmol/L (3.5-5.5)
--- NOTE | 2021-10-28 18:14 | NUR ---
SHIFT SUMMARY NO ACUTE CHANGES DURING SHIFT. PT ALERT AND ORIENTED, FOLLOWS COMMANDS. PT RECEIVED 1 UNIT PRBC'S TODAY FOR HGB OF 6.5. SWELLING TO RUE STILL PRESENT, WHEEPING TO SKIN TEAR, DRESSING CHANGED. REDNESS AND BRUSING NOTED TO RLE, FAMILY NOTES IMPROVEMENT. PT RECEIVING LASIX IV BID TODAY. INCREASED URINE OUTPUT. PT AWAITING CLEARANCE FOR DISCHARGE TO FACILITY.
[2021-10-29 05:12] LABS: BASOPHILS ABSOLUTE AUTO 0.01 K/mm3 (0.00-0.23); BASOPHILS PERCENT AUTO 0 % (0-2); EOSINOPHILS ABSOLUTE AUTO 0.01 K/mm3 (0.00-0.68); EOSINOPHILS PERCENT AUTO 0 % (0-6); Hematocrit 23.4 % (33.0-51.0); Hemoglobin 7.4 g/dL (11.5-16.0); IMMATURE GRAN ABSOLUTE AUTO 0.03 K/mm3 (0.00-0.10); IMMATURE GRAN PERCENT AUTO 0 % (0-1); LYMPHOCYTES ABSOLUTE AUTO 0.69 K/mm3 (0.84-5.20); LYMPHOCYTES PERCENT AUTO 8 % (21-46); MONOCYTES PERCENT AUTO 12 % (4-13); Mean Corpuscular HGB 28.5 pg (26.0-34.0); Mean Corpuscular HGB Conc 31.6 g/dL (31.5-36.5); Mean Corpuscular Volume 90 fL (80-100); Mean Platelet Volume 11.1 fL (9.1-12.4); NEUTROPHILS ABSOLUTE AUTO 7.39 K/mm3 (1.96-9.15); NEUTROPHILS PERCENT AUTO 80 % (41-73); Platelet Count 207 K/mm3 (150-400); RDW Coefficient Variation 13.9 % (11.7-14.2); RDW Standard Deviation 45.5 fL (35.1-46.3); White Blood Cell Count 9.23 K/mm3 (4.00-11.30)
--- NOTE | 2021-10-29 05:13 | NUR ---
SHIFT SUMMARY: PATIENT TRANSFERS FROM CHAIR TO BED WITH ASSIST X2, FWW AND GAIT BELT. DURING THE HOURS OF SLEEP PATIENT CALLED FOR ASSIST OOB AND WAS ABLE TO GET TO THE BSC WITH AX2 BUT HAD A DIFFICULT TIME TRANSFERING BACK TO THE BED. LEGS JUST BUCKLED. PATIENT WAS ASSISTED TO A SEATING POSITION ON THE EGDE OF THE BED. PERWICK WAS SET UP TO USE DURING THE NIGHT WHEN PATTIENT IS TIRED. PATIENT CONTINUES TO REPORT PAIN IN LEFT RIBS. NORCO AND TYLENOL GIVEN TOGETHER PROVIDE GOOD PAIN CONTROL.
[2021-10-29 05:50] LABS: Anion Gap 5 mmol/L (6-16); Blood Urea Nitrogen 63 mg/dL (8-24); Bun/Creatinine Ratio 27.6 (12.0-20.0); CO2, Blood 37 mmol/L (21-32); Calcium, Blood 9.5 mg/dL (8.5-10.1); Chloride, Blood 97 mmol/L (98-108); Creatinine, Blood 2.28 mg/dL (0.40-1.00); Glomerular Filtration Rate 20 (60-); Glucose, Blood 122 mg/dL (70-99); Potassium, Blood 4.5 mmol/L (3.5-5.5); Sodium, Blood 139 mmol/L (136-145)
[2021-10-29 12:25] LABS: Influenza A, PCR NEGATIVE (NEGATIVE); Influenza B, PCR NEGATIVE (NEGATIVE); Resp Syncytial Virus, PCR NEGATIVE (NEGATIVE); SARS-Cov-2 (COVID-19) PCR, MMC NEGATIVE (NEGATIVE)
--- NOTE | 2021-10-29 18:25 | NUR ---
SHIFT SUMMARY NO ACUTE CHANGES DURING SHIFT. PT ALERT AND ORIENTED, FOLLOWS COMMANDS. DRESSING CONTINUES TO WHEEP, DRESSING CHANGED MULTIPLE TIMES DURING SHIFT. CONTINUE IV LASIX BID, IMPROVEMENT IN SWELLING. [facility], PLAN TO DC TOMORROW.
--- NOTE | 2021-10-30 04:56 | NUR ---
SHIFT SUMMARY AOX4-SELF, PLACE, SITUATION, DATE, FOLLOWING DIRECTIONS. SLOW TO RESPOND TO QUESTIONS, HOWEVER ANSWERS APPROPRIATE. VSS. SPO2 >92% ON 2L O2 (BASELINE), LS DIM IN BASES, E/U RESP, REPORTS ORTHOPNEA. RLE RED, WARM TO TOUCH c +3 EDEMA. +2 EDEMA LLE, GENERALIZED DEPENDENT EDEMA T/O BODY. ELEVATED FEET. ARMS ARE LESS EDEMATOUS COMPARED TO YESTERDAY, RECIEVING IV LASIX. BRUISING T/O L SIDE TORSO. R UNDER ARM LISA & BANDAGE C/D/I. 2 PER c GB & FWW FOR TRANSFER. REPORTS 5/10 PAIN IN LEGS & L SIDE TORSO, MEDICATED 1X c TYLENOL & HYDROCODONE, PT ABLE TO FALL ASLEEP & REST COMFORTABLY. PLAN TO POSS DC TO [facility] TODAY. CALL LIGHT IN REACH & PT ABLE TO MAKE NEEDS KNOWN.
[2021-10-30 06:11] LABS: Vancomycin, Random 14.5 ug/mL
[2021-10-30 12:37] LABS: Bun/Creatinine Ratio 28.5 (12.0-20.0); Calcium, Blood 10.2 mg/dL (8.5-10.1); Creatinine, Blood 1.86 mg/dL (0.40-1.00); Potassium, Blood 4.6 mmol/L (3.5-5.5)
--- NOTE | 2021-10-30 18:28 | NUR ---
SHIFT SUMMARY NO ACUTE CHANGES DURING SHIFT. PT ALERT AND ORIENTED, FOLLOWS COMMANDS. PT REMAINS ON IV LASIX, ADEQUATE OUTPUT. PT UNABLE TO TOLERATE JACLYN HOSE APPLICATION, ERNESTINA WRAPS TO BLE INSTEAD. PRN PAIN MEDICATION ADMINISTERED FOR L RIB PAIN X 1. PT TO REMAIN ON IV LASIX FOR WEEKEND AND PLAN FOR D/C TO FACILITY ON MONDAY.
--- NOTE | 2021-10-31 05:02 | NUR ---
SHIFT SUMMARY AOX4-SELF, PLACE, SITUATION, DATE, FOLLOWING DIRECTIONS. VSS. REPORTS PAIN IN L SIDE & LEGS, DENIES N/V OR DYSPNEA. SPO2 >90% ON 3L O2. HAS ORTHOPNEA. +2 EDEMA BLE. DEPENDENT EDEMA T/O HIPS. STRICT I&O, RECIEVING LASIX. BANDAGES C/D/I, CHANGED ON DAYS 10/30. PLAN TO [facility] MORE THEN DC TO [facility] BEGINNING OF THE WEEK. CALL LIGHT IN REACH.
[2021-10-31 06:05] LABS: BASOPHILS ABSOLUTE AUTO 0.01 K/mm3 (0.00-0.23); BASOPHILS PERCENT AUTO 0 % (0-2); EOSINOPHILS ABSOLUTE AUTO 0.04 K/mm3 (0.00-0.68); EOSINOPHILS PERCENT AUTO 1 % (0-6); Hematocrit 23.7 % (33.0-51.0); Hemoglobin 7.3 g/dL (11.5-16.0); IMMATURE GRAN ABSOLUTE AUTO 0.02 K/mm3 (0.00-0.10); IMMATURE GRAN PERCENT AUTO 0 % (0-1); LYMPHOCYTES ABSOLUTE AUTO 0.92 K/mm3 (0.84-5.20); LYMPHOCYTES PERCENT AUTO 11 % (21-46); MONOCYTES ABSOLUTE AUTO 1.18 K/mm3 (0.16-1.47); MONOCYTES PERCENT AUTO 14 % (4-13); Mean Corpuscular HGB 28.2 pg (26.0-34.0); Mean Corpuscular HGB Conc 30.8 g/dL (31.5-36.5); Mean Corpuscular Volume 92 fL (80-100); Mean Platelet Volume 11.6 fL (9.1-12.4); NEUTROPHILS ABSOLUTE AUTO 6.22 K/mm3 (1.96-9.15); NEUTROPHILS PERCENT AUTO 74 % (41-73); Platelet Count 256 K/mm3 (150-400); RDW Coefficient Variation 13.2 % (11.7-14.2); RDW Standard Deviation 43.5 fL (35.1-46.3); Red Blood Cell Count 2.59 M/mm3 (3.80-5.20); White Blood Cell Count 8.39 K/mm3 (4.00-11.30)
[2021-10-31 06:25] LABS: Anion Gap 9 mmol/L (6-16); Blood Urea Nitrogen 48 mg/dL (8-24); CO2, Blood 37 mmol/L (21-32); Calcium, Blood 9.6 mg/dL (8.5-10.1); Chloride, Blood 95 mmol/L (98-108); Glomerular Filtration Rate 31 (60-); Glucose, Blood 110 mg/dL (70-99); Potassium, Blood 3.9 mmol/L (3.5-5.5); Sodium, Blood 141 mmol/L (136-145); Vancomycin, Random 17.9 ug/mL
--- NOTE | 2021-10-31 12:37 | NUR ---
ACCEPTED CARE AND COMFORT OF THIS PATIENT AT 1155 TODAY. PATIENT IS VERBAL. AO X 3. DAUGHTER AT BEDSIDE. PAITENT IS INCONTINENT OF BOWEL AND BLADDER. PER REPORT SHE INSISTS ON GETTING UP TO BEDSIDE COMMODE HOWEVER IS UNABLE TO BEAR WEIGHT. WILL PLACE ATTENDS ON PATIENT AND ENCOURAGE HER TO USE BEDPAN FOR SAFETY SINCE SHE IS A FALL RISK AND RISK FOR STAFF INJURY. CALL LIGHT IS IN REACH. AFTERNOON MEAL AT BEDSIDE. PATIENT ON 3 LITERS O2.
--- NOTE | 2021-10-31 12:40 | NUR ---
TRANSFER NOTE PT TRANSFERRED OUT OF SCU INTO MED FLOOR ROOM 357. REPORT GIVEN TO PAULINO COX RN. PT AxOx4. PLEASANT AND COOPERATIVE WITH CARE. PT'S DAUGHTER IN ROOM THIS AM, UPDATED ON PLAN OF CARE BY PROVIDER. VITALS REVIEWED. AM MEDS GIVEN. ASSESSMENT COMPLETED AND CHARTED. WOUND CARE/DRESSING CHANGES NOT COMPLETE. PAULINO NOTIFIED, WILL DO THE DRESSING CHANGES THIS SHIFT. PT SAFELY ESCORTED OUT VIA BED WITH BEST SECOND JOBS'S.
--- NOTE | 2021-11-01 00:26 | NUR ---
REPORT GIVEN TO Roberto EASON RN PRIOR TO TRANSFER TO ROOM 311. NO CHANGES FROM 2330 ASSESSMENT. GABY PHILIP
--- NOTE | 2021-11-01 05:08 | NUR ---
PT MOVED TO ROOM 310 AT 0020. LIFT SHEET PLACED UNDER PATIENT TO ASSIST IN MOVING PATIENT IN BED. PT USES FEMALE URINAL WITH ASSIST.
[2021-11-01 05:59] LABS: BASOPHILS PERCENT AUTO 0 % (0-2); EOSINOPHILS ABSOLUTE AUTO 0.02 K/mm3 (0.00-0.68); EOSINOPHILS PERCENT AUTO 0 % (0-6); Hemoglobin 7.8 g/dL (11.5-16.0); IMMATURE GRAN ABSOLUTE AUTO 0.02 K/mm3 (0.00-0.10); IMMATURE GRAN PERCENT AUTO 0 % (0-1); LYMPHOCYTES ABSOLUTE AUTO 0.71 K/mm3 (0.84-5.20); LYMPHOCYTES PERCENT AUTO 9 % (21-46); MONOCYTES ABSOLUTE AUTO 1.04 K/mm3 (0.16-1.47); MONOCYTES PERCENT AUTO 13 % (4-13); Mean Corpuscular HGB 28.6 pg (26.0-34.0); Mean Corpuscular HGB Conc 31.2 g/dL (31.5-36.5); Mean Corpuscular Volume 92 fL (80-100); Mean Platelet Volume 11.2 fL (9.1-12.4); NEUTROPHILS ABSOLUTE AUTO 6.33 K/mm3 (1.96-9.15); NEUTROPHILS PERCENT AUTO 78 % (41-73); Platelet Count 296 K/mm3 (150-400); RDW Coefficient Variation 13.5 % (11.7-14.2); RDW Standard Deviation 43.9 fL (35.1-46.3); Red Blood Cell Count 2.73 M/mm3 (3.80-5.20); White Blood Cell Count 8.12 K/mm3 (4.00-11.30)
[2021-11-01 06:22] LABS: Anion Gap 6 mmol/L (6-16); Blood Urea Nitrogen 44 mg/dL (8-24); Bun/Creatinine Ratio 25.6 (12.0-20.0); CO2, Blood 40 mmol/L (21-32); Calcium, Blood 10.3 mg/dL (8.5-10.1); Chloride, Blood 92 mmol/L (98-108); Creatinine, Blood 1.72 mg/dL (0.40-1.00); Glomerular Filtration Rate 28 (60-); Glucose, Blood 122 mg/dL (70-99); Potassium, Blood 3.5 mmol/L (3.5-5.5); Sodium, Blood 138 mmol/L (136-145); Vancomycin, Random 18.9 ug/mL
--- NOTE | 2021-11-01 11:42 | NUR ---
DR WYNN REQUEST PT RE-EVAL AND WORK WITH HER. CHECK STATUS FOR D/C. ALSO HOME O2 EVAL. TO SEE IF NEED INCREASED O2. CARE MGMT STATES SNF WILL DO IS ON O2 NOW.
--- NOTE | 2021-11-01 18:37 | NUR ---
PT PLEASANT TODAY. FAMILY IN MUCH OF DAY. ALL PLEASANT TODAY. DR STATES EXPECTING D/C TOMORROW TO SNF. PT WANTED LEG WRAP OFF TODAY. PT ABLE TO AMBULATE SHORT TO BSC WITH 1 ASST. MOSTLY SELF, WE THERE FOR ASSISTANCE IF NEEDS SUPPORT. NO NEW CONCNERS NOTED. BED IN LOW POSITION, CALL LITE IN REACH, CALLSAPPROP
[2021-11-02 01:07] LABS: SARS-Cov-2 (COVID-19) PCR, MMC NEGATIVE (NEGATIVE)
[2021-11-02 05:00] LABS: BASOPHILS ABSOLUTE AUTO 0.01 K/mm3 (0.00-0.23); BASOPHILS PERCENT AUTO 0 % (0-2); EOSINOPHILS ABSOLUTE AUTO 0.06 K/mm3 (0.00-0.68); EOSINOPHILS PERCENT AUTO 1 % (0-6); Hematocrit 24.9 % (33.0-51.0); Hemoglobin 7.6 g/dL (11.5-16.0); IMMATURE GRAN ABSOLUTE AUTO 0.02 K/mm3 (0.00-0.10); IMMATURE GRAN PERCENT AUTO 0 % (0-1); LYMPHOCYTES ABSOLUTE AUTO 1.14 K/mm3 (0.84-5.20); LYMPHOCYTES PERCENT AUTO 14 % (21-46); MONOCYTES ABSOLUTE AUTO 1.11 K/mm3 (0.16-1.47); MONOCYTES PERCENT AUTO 14 % (4-13); Mean Corpuscular HGB Conc 30.5 g/dL (31.5-36.5); Mean Corpuscular Volume 92 fL (80-100); Mean Platelet Volume 10.6 fL (9.1-12.4); NEUTROPHILS ABSOLUTE AUTO 5.88 K/mm3 (1.96-9.15); NEUTROPHILS PERCENT AUTO 72 % (41-73); Platelet Count 323 K/mm3 (150-400); RDW Coefficient Variation 13.4 % (11.7-14.2); RDW Standard Deviation 43.8 fL (35.1-46.3); Red Blood Cell Count 2.71 M/mm3 (3.80-5.20); White Blood Cell Count 8.22 K/mm3 (4.00-11.30)
[2021-11-02 05:15] LABS: Anion Gap 6 mmol/L (6-16); Blood Urea Nitrogen 45 mg/dL (8-24); Bun/Creatinine Ratio 24.1 (12.0-20.0); CO2, Blood 44 mmol/L (21-32); Calcium, Blood 9.6 mg/dL (8.5-10.1); Chloride, Blood 90 mmol/L (98-108); Creatinine, Blood 1.87 mg/dL (0.40-1.00); Glomerular Filtration Rate 25 (60-); Glucose, Blood 115 mg/dL (70-99); Potassium, Blood 3.2 mmol/L (3.5-5.5); Sodium, Blood 140 mmol/L (136-145); Vancomycin, Random 19.7 ug/mL
--- NOTE | 2021-11-02 06:21 | NUR ---
SHIFT SUMMARY NOC: PT SLEPT MOST OF NIGHT. 1A FWW TO BSC. NO PRN PAIN MEDS GIVEN. PT ON 3L NC. PT TO DC TO SNF TODAY. COVID NEGATIVE. NO ACUTE EVENTS.
[2021-11-02] MEDS ORDERED: FURO20 PO (11:25)
[2021-11-02] MEDS ORDERED: METO25ER PO (11:26)
[2021-11-02] MEDS ORDERED: Norco 10-325 T1 EACH PO (11:26)
--- NOTE | 2021-11-02 12:30 | NUR ---
3 LISA REMOVED TO R UPPER ARM PER MD ORDER. AREA CLEANSED AND NONADHERENT DRESSING PLACED. PATIENT TOLERATED WELL.
[2021-11-02] MEDS ORDERED: VISBIOME 112.51 EACH PO (13:11)
[2021-11-02] MEDS ORDERED: SULTRIDS PO (13:11)
[2021-11-02 15:25] LABS: Influenza A, PCR NEGATIVE (NEGATIVE); Influenza B, PCR NEGATIVE (NEGATIVE); Resp Syncytial Virus, PCR NEGATIVE (NEGATIVE); SARS-Cov-2 (COVID-19) PCR, MMC NEGATIVE (NEGATIVE)
== END 2021-11-02 16:42 | DRG 872 ==
LOC: ER 07:49 → MEDS 07:50
PROVIDERS: Emergency Medicine; Family Medicine; ADMIT Internal Medicine
PROC: 30233N1 Transfusion of Nonautologous Red Blood Cells into Peripheral Vein, Percutaneous Approach (ICD-10-PCS; principal; 2021-10-28)
PROC: 3E03329 Introduction of Other Anti-infective into Peripheral Vein, Percutaneous Approach (ICD-10-PCS; 2021-10-28)
DX: A41.9 Sepsis, unspecified organism (principal); S22.42XA Multiple fractures of ribs, left side, initial encounter for closed fracture; L03.115 Cellulitis of right lower limb; Z68.41 Body mass index [BMI] 40.0-44.9, adult; N17.9 Acute kidney failure, unspecified; J96.10 Chronic respiratory failure, unspecified whether with hypoxia or hypercapnia; E87.3 Alkalosis; Z66 Do not resuscitate; I48.91 Unspecified atrial fibrillation; Z20.822 Contact with and (suspected) exposure to COVID-19; E78.00 Pure hypercholesterolemia, unspecified; D63.1 Anemia in chronic kidney disease; I87.2 Venous insufficiency (chronic) (peripheral); M51.36 Other intervertebral disc degeneration, lumbar region; M48.061 Spinal stenosis, lumbar region without neurogenic claudication; J44.9 Chronic obstructive pulmonary disease, unspecified; K59.00 Constipation, unspecified; N18.9 Chronic kidney disease, unspecified; R29.6 Repeated falls; I12.9 Hypertensive chronic kidney disease with stage 1 through stage 4 chronic kidney disease, or unspecified chronic kidney disease; Z96.1 Presence of intraocular lens; F41.9 Anxiety disorder, unspecified; M54.30 Sciatica, unspecified side; G89.29 Other chronic pain; R62.7 Adult failure to thrive; R07.89 Other chest pain; S80.11XA Contusion of right lower leg, initial encounter; Z98.890 Other specified postprocedural states; Z88.0 Allergy status to penicillin; Z91.048 Other nonmedicinal substance allergy status; Z79.899 Other long term (current) drug therapy; Z79.02 Long term (current) use of antithrombotics/antiplatelets; Z79.2 Long term (current) use of antibiotics; Z79.82 Long term (current) use of aspirin; Z79.51 Long term (current) use of inhaled steroids; Z79.52 Long term (current) use of systemic steroids; Z86.73 Personal history of transient ischemic attack (TIA), and cerebral infarction without residual deficits; W18.09XA Striking against other object with subsequent fall, initial encounter; Z99.81 Dependence on supplemental oxygen
CPT/HCPCS: 0241U; 36415; 36430; 71045; 71110; 80048; 80053; 80202; 83735; 83880; 85025; 85651; 86140; 86850; 86900; 86901; 86923; 93925; 93971; 94640; 94664; 94760; 96361; 96365; 96375; 96376; 97110; 97116; 97162; 97166; 97530; 97535; 99285-25; A9270; G0378; J1170; J1940; J2310; J3370; J7030; J7040; J7060; P9016; U0004

== ENCOUNTER 2021-12-03 12:39 | Inpatient (IN) | payer MEDICARE ==
[~2021-12-03] VITALS: Ht 157.5 cm; Wt 100.6 kg
[~2021-12-03 12:39] MED LIST changes: +FURO20 PO; +METO25ER PO; +Norco 10-325 T1 EACH PO; +SULTRIDS PO; +VISBIOME 112.51 EACH PO
[2021-12-03 13:35] LABS: BASOPHILS PERCENT AUTO 0 % (0-2); EOSINOPHILS ABSOLUTE AUTO 0.04 K/mm3 (0.00-0.68); EOSINOPHILS PERCENT AUTO 1 % (0-6); Hematocrit 26.8 % (33.0-51.0); Hemoglobin 8.6 g/dL (11.5-16.0); IMMATURE GRAN ABSOLUTE AUTO 0.01 K/mm3 (0.00-0.10); IMMATURE GRAN PERCENT AUTO 0 % (0-1); LYMPHOCYTES ABSOLUTE AUTO 0.99 K/mm3 (0.84-5.20); LYMPHOCYTES PERCENT AUTO 14 % (21-46); MONOCYTES ABSOLUTE AUTO 1.16 K/mm3 (0.16-1.47); MONOCYTES PERCENT AUTO 16 % (4-13); Mean Corpuscular HGB 28.6 pg (26.0-34.0); Mean Corpuscular HGB Conc 32.1 g/dL (31.5-36.5); Mean Corpuscular Volume 89 fL (80-100); Mean Platelet Volume 11.6 fL (9.1-12.4); NEUTROPHILS ABSOLUTE AUTO 5.02 K/mm3 (1.96-9.15); NEUTROPHILS PERCENT AUTO 70 % (41-73); Platelet Count 277 K/mm3 (150-400); RDW Coefficient Variation 13.2 % (11.7-14.2); RDW Standard Deviation 43.1 fL (35.1-46.3); Red Blood Cell Count 3.01 M/mm3 (3.80-5.20); White Blood Cell Count 7.22 K/mm3 (4.00-11.30)
[2021-12-03 13:53] LABS: Albumin, Blood 3.4 g/dL (3.4-5.0); Bilirubin, Total 0.5 mg/dL (0.1-1.0); Bun/Creatinine Ratio 11.4 (12.0-20.0); Calcium, Blood 9.2 mg/dL (8.5-10.1); Creatinine, Blood 3.25 mg/dL (0.40-1.00); Globulin, Blood 3.5 g/dL (2.2-4.0); Total Protein, Blood 6.9 g/dL (6.4-8.2)
[2021-12-03 20:21] LABS: Influenza A, PCR NEGATIVE (NEGATIVE); Influenza B, PCR NEGATIVE (NEGATIVE); Resp Syncytial Virus, PCR NEGATIVE (NEGATIVE); SARS-Cov-2 (COVID-19) PCR, MMC NEGATIVE (NEGATIVE)
[2021-12-03] MEDS ORDERED: SENNA LAXATIVE8.6 MG PO (21:34)
[2021-12-03] MEDS ORDERED: POTCHL20ER PO (21:35)
[2021-12-03] MEDS ORDERED: MIRALAX17 GM PO (21:35)
[2021-12-03] MEDS ORDERED: BISA10S PR (21:36)
--- NOTE | 2021-12-03 22:12 | NUR ---
ADMISSION REPORT RECIEVED FROM ER NURSE. PATIENT ARRIVED TO ROOM 336, STOOD INDEPENDENTLY AND TRANSFERRED HERSELF TO MEDICAL FLOOR BED. VITALS STABLE, PATIENT IS TACHYPNEIC WITH RESPIRATIONS 28, ON 2L NC WITH O2 SAT 100%. PATIENT STATES SHE FEELS SHORT OF BREATH BUT D/T COPD SHE ALWAYS FEELS SHORT OF BREATH. PATIENT IS SITTING ON EDGE OF BED, DANGLING LEGS. SEE ADMISSION ASSESSMENT. PHOTO DOCUMENTATION OF RASH ON LEFT ANTERIOR FOREARM IN CHART. PATIENT ORIENTED TO ROOM AND CALL LIGHT SYSTEM. BED IN LOW POSITION, CALL LIGHT IN REACH.
[2021-12-04 06:02] LABS: BASOPHILS PERCENT AUTO 0 % (0-2); EOSINOPHILS PERCENT AUTO 0 % (0-6); Hematocrit 24.4 % (33.0-51.0); Hemoglobin 7.6 g/dL (11.5-16.0); IMMATURE GRAN ABSOLUTE AUTO 0.01 K/mm3 (0.00-0.10); IMMATURE GRAN PERCENT AUTO 0 % (0-1); LYMPHOCYTES ABSOLUTE AUTO 0.75 K/mm3 (0.84-5.20); LYMPHOCYTES PERCENT AUTO 15 % (21-46); MONOCYTES ABSOLUTE AUTO 0.14 K/mm3 (0.16-1.47); MONOCYTES PERCENT AUTO 3 % (4-13); Mean Corpuscular HGB 27.9 pg (26.0-34.0); Mean Corpuscular HGB Conc 31.1 g/dL (31.5-36.5); Mean Corpuscular Volume 90 fL (80-100); Mean Platelet Volume 12.1 fL (9.1-12.4); NEUTROPHILS ABSOLUTE AUTO 4.28 K/mm3 (1.96-9.15); NEUTROPHILS PERCENT AUTO 83 % (41-73); Platelet Count 241 K/mm3 (150-400); RDW Standard Deviation 42.6 fL (35.1-46.3); Red Blood Cell Count 2.72 M/mm3 (3.80-5.20); White Blood Cell Count 5.18 K/mm3 (4.00-11.30)
[2021-12-04 06:33] LABS: Bilirubin, Total 0.5 mg/dL (0.1-1.0); Bun/Creatinine Ratio 11.3 (12.0-20.0); Calcium, Blood 8.8 mg/dL (8.5-10.1); Creatinine, Blood 3.26 mg/dL (0.40-1.00); Globulin, Blood 2.9 g/dL (2.2-4.0); Potassium, Blood 3.2 mmol/L (3.5-5.5); Total Protein, Blood 5.9 g/dL (6.4-8.2)
--- NOTE | 2021-12-04 06:39 | NUR ---
SHIFT SUMMARY PATIENT ALERT, ORIENTED x4, ABLE TO MAKE NEEDS KNOWN TO STAFF. PATIENT ABLE TO SLEEP FOR THE REST OF THE SHIFT AFTER ADMISSION WAS COMPLETE. VSS, PATIENT REMAINED ON 2L NC WITH O2 SAT >95%. DENIES CHEST PAIN OR PRESSURE. ABLE TO AMBULATE INTO BATHROOM 1 ASSIST WITH A WALKER. PATIENT WAS ABLE TO VOID WITHOUT ISSUES. NO BM THIS SHIFT. NO OTHER SIGNIFICANT CHANGES SINCE ADMISSION. WILL REPORT TO DAY SHIFT RN.
--- NOTE | 2021-12-04 13:15 | NUR ---
PT WAS TRANSPORTED TO IMAGING VIA WHEELCHAIR, ESCORTED BY SOIL SCIENTIST, FOR COMPLETION OF A PERFUSION STUDY.
[2021-12-04] MEDS ORDERED: ALBU3IS INH (13:28)
[2021-12-04] MEDS ORDERED: AMLO10 PO (13:29)
[2021-12-04] MEDS ORDERED: ATORVASTATIN CA80 M1 PO (13:30)
[2021-12-04] MEDS ORDERED: Symbicort 160 mcg-4. INH (13:32)
[2021-12-04] MEDS ORDERED: FUROSEMIDE40 MG PO (13:33)
[2021-12-04] MEDS ORDERED: HYDCHL50 PO (13:34)
[2021-12-04] MEDS ORDERED: LOSARTAN POTAS100 M1 PO (13:35)
[2021-12-04] MEDS ORDERED: METO25ER PO (13:36)
[2021-12-04] MEDS ORDERED: OMEP20ER PO (13:38)
[2021-12-04] MEDS ORDERED: TIOT18 INH (13:39)
[2021-12-04] MEDS ORDERED: Vitamin D PO (13:40)
--- NOTE | 2021-12-04 13:56 | NUR ---
RECEIVED PHONE CALL FROM [facility] IN ULTRASOUND, WITH RESULTS OF LOWER RIGHT LEG US COMPLETED TODAY - THERE IS NO DVT.
[2021-12-04 14:28] LABS: Albumin, Blood 3.3 g/dL (3.4-5.0); Anion Gap 8 mmol/L (6-16); Blood Urea Nitrogen 37 mg/dL (8-24); Bun/Creatinine Ratio 13.4 (12.0-20.0); CO2, Blood 34 mmol/L (21-32); Calcium, Blood 9.1 mg/dL (8.5-10.1); Chloride, Blood 93 mmol/L (98-108); Creatinine, Blood 2.77 mg/dL (0.40-1.00); Glomerular Filtration Rate 16 (60-); Glucose, Blood 155 mg/dL (70-99); Phosphorus, Blood 2.8 mg/dL (2.5-4.9); Sodium, Blood 135 mmol/L (136-145)
--- NOTE | 2021-12-04 17:27 | NUR ---
JUAN DAVID COMPLETED RENAL US, VENOUS RLE US, AND A LUNG PERFUSION STUDY. NOTHING REMARKABLE FOR DVT OR LUNG EMBOLISM. JUAN DAVID VISITED WITH HER DAUGHTERS AT HER BEDSIDE THIS MORNING. IV ACCESS IN LFA. FLUIDS DISCONTINUED AFTER 1 BAG OF 1/2 NORMAL SALINE. 2LPM OXYGEN VIA NC. CALLS APPROPRIATELY FOR ASSISTANCE TO THE BATHROOM. PT STATES, "I'M TIPSY TURVY WHEN STANDING BY MYSELF", SHE ACKNOWLEDGES UNSTEADY GAIT. INCREASED WOB WITH BED MOBILITY OR AMBULATING TO BATHROOM. ABLE TO REST COMFORTABLY. VSS.
--- NOTE | 2021-12-05 04:01 | NUR ---
SHIFT SUMMARY: A/OX4, 1 PERSON STANDBY ASSIST WHEN AMBULATING TO BATHROOM. PT REMAINS CONTINENT, CALLING APPROPRIATELY. NO ACUTE CHANGES THROUGHOUT THE NIGHT. PT DECLINES PAIN THROUGHT THE NIGHT- REPOSITIONS SELF IN BED. BED ALARM REMAINS ACTIVATED, BED IN LOW POSITION, CALL BERRY AND BELONGINGS IN REACH.
[2021-12-05 05:26] LABS: BASOPHILS ABSOLUTE AUTO 0.05 K/mm3 (0.00-0.23); BASOPHILS PERCENT AUTO 1 % (0-2); EOSINOPHILS PERCENT AUTO 0 % (0-6); Hematocrit 24.3 % (33.0-51.0); Hemoglobin 7.8 g/dL (11.5-16.0); IMMATURE GRAN ABSOLUTE AUTO 0.22 K/mm3 (0.00-0.10); IMMATURE GRAN PERCENT AUTO 2 % (0-1); LYMPHOCYTES ABSOLUTE AUTO 1.16 K/mm3 (0.84-5.20); LYMPHOCYTES PERCENT AUTO 13 % (21-46); MONOCYTES ABSOLUTE AUTO 0.84 K/mm3 (0.16-1.47); MONOCYTES PERCENT AUTO 9 % (4-13); Mean Corpuscular HGB 27.8 pg (26.0-34.0); Mean Corpuscular HGB Conc 32.1 g/dL (31.5-36.5); Mean Corpuscular Volume 87 fL (80-100); Mean Platelet Volume 11.6 fL (9.1-12.4); NEUTROPHILS ABSOLUTE AUTO 6.77 K/mm3 (1.96-9.15); NEUTROPHILS PERCENT AUTO 75 % (41-73); Platelet Count 252 K/mm3 (150-400); RDW Coefficient Variation 12.9 % (11.7-14.2); RDW Standard Deviation 40.7 fL (35.1-46.3); Red Blood Cell Count 2.81 M/mm3 (3.80-5.20); White Blood Cell Count 9.04 K/mm3 (4.00-11.30)
[2021-12-05 05:50] LABS: Albumin, Blood 3.1 g/dL (3.4-5.0); Anion Gap 7 mmol/L (6-16); Blood Urea Nitrogen 39 mg/dL (8-24); Bun/Creatinine Ratio 15.7 (12.0-20.0); CO2, Blood 35 mmol/L (21-32); Calcium, Blood 9.1 mg/dL (8.5-10.1); Chloride, Blood 95 mmol/L (98-108); Creatinine, Blood 2.49 mg/dL (0.40-1.00); Glomerular Filtration Rate 18 (60-); Glucose, Blood 126 mg/dL (70-99); Phosphorus, Blood 2.9 mg/dL (2.5-4.9); Potassium, Blood 2.7 mmol/L (3.5-5.5); Sodium, Blood 137 mmol/L (136-145)
--- NOTE | 2021-12-05 08:00 | NUR ---
pt laying in bed awake a/ox3, pleasant and cooperative with care, follows commands well, denies pain at this time, sates she slept well and thinks she may go home today, lungs are clear, dim in bases, resp even and unlabored, no cough noted, hrirr, edema noted to upper and lower ext, ppp+1, cap refill <3sec, vs stable, afebrile, iv site is clear and patent, s.l., btx4, abd flat soft nontender, voids without diff, skin has some raised areas to left fa, not open, dressing noted to esdras states there is a skin tear, right lower ext is pink, not open, maew, up indep to bathroom, abelardo, call light in reach.
[2021-12-05 13:35] LABS: Albumin, Blood 3.3 g/dL (3.4-5.0); Anion Gap 7 mmol/L (6-16); Blood Urea Nitrogen 38 mg/dL (8-24); CO2, Blood 33 mmol/L (21-32); Calcium, Blood 9.6 mg/dL (8.5-10.1); Chloride, Blood 96 mmol/L (98-108); Creatinine, Blood 2.37 mg/dL (0.40-1.00); Glomerular Filtration Rate 19 (60-); Glucose, Blood 142 mg/dL (70-99); Phosphorus, Blood 2.5 mg/dL (2.5-4.9); Sodium, Blood 136 mmol/L (136-145)
--- NOTE | 2021-12-05 18:03 | NUR ---
pt resting quietly after eating dinner, Dr. Armstrong was consulted, and new orders recieved, no further changes, call light in reach.
[2021-12-06 05:32] LABS: Hematocrit 23.1 % (33.0-51.0); Hemoglobin 7.4 g/dL (11.5-16.0); Mean Corpuscular HGB 28.4 pg (26.0-34.0); Mean Corpuscular Volume 89 fL (80-100); Mean Platelet Volume 11.7 fL (9.1-12.4); Platelet Count 248 K/mm3 (150-400); RDW Standard Deviation 41.8 fL (35.1-46.3); Red Blood Cell Count 2.61 M/mm3 (3.80-5.20); White Blood Cell Count 8.97 K/mm3 (4.00-11.30)
[2021-12-06 06:02] LABS: Albumin, Blood 3.2 g/dL (3.4-5.0); Anion Gap 4 mmol/L (6-16); Blood Urea Nitrogen 36 mg/dL (8-24); Bun/Creatinine Ratio 17.2 (12.0-20.0); CO2, Blood 36 mmol/L (21-32); Calcium, Blood 9.6 mg/dL (8.5-10.1); Chloride, Blood 98 mmol/L (98-108); Creatinine, Blood 2.09 mg/dL (0.40-1.00); Glomerular Filtration Rate 22 (60-); Glucose, Blood 116 mg/dL (70-99); Magnesium, Blood 2.1 mg/dL (1.6-2.4); Phosphorus, Blood 2.6 mg/dL (2.5-4.9); Sodium, Blood 138 mmol/L (136-145)
--- NOTE | 2021-12-06 07:26 | NUR ---
NOC SHIFT SUMMARY PT PLACED ON 1L FR OVERNIGHT PER DR MONCADA. 24 HOUR URINE COLLECTION STARTED AT 0000. K THIS AM 3.0; IV REPLENISHMENT INITIATED. NO ISSUES OVERNIGHT.
--- NOTE | 2021-12-06 18:36 | NUR ---
SHIFT SUMMARY PT A/O X4; PLEASANT AND COOPERATIVE WITH CARE. PT ON 24 HOUR URINE COLLECTION WHICH IS DONE AT 0000. SHE C/O INCREASED PAIN IN HER L LEG AND HER L LEG IS MORE RED WELL. PT PLACED ON ADDITIONAL ABX. NO OTHER C/O THIS SHIFT. VSS.
[2021-12-07 03:04] LABS: Protein, Urine Quantitative 8.8 mg/dL (0.0-11.9)
[2021-12-07 05:26] LABS: BASOPHILS ABSOLUTE AUTO 0.01 K/mm3 (0.00-0.23); BASOPHILS PERCENT AUTO 0 % (0-2); EOSINOPHILS PERCENT AUTO 0 % (0-6); Hematocrit 25.9 % (33.0-51.0); IMMATURE GRAN ABSOLUTE AUTO 0.12 K/mm3 (0.00-0.10); IMMATURE GRAN PERCENT AUTO 1 % (0-1); LYMPHOCYTES ABSOLUTE AUTO 0.77 K/mm3 (0.84-5.20); LYMPHOCYTES PERCENT AUTO 8 % (21-46); MONOCYTES ABSOLUTE AUTO 0.84 K/mm3 (0.16-1.47); MONOCYTES PERCENT AUTO 9 % (4-13); Mean Corpuscular HGB Conc 30.9 g/dL (31.5-36.5); Mean Corpuscular Volume 91 fL (80-100); NEUTROPHILS ABSOLUTE AUTO 7.46 K/mm3 (1.96-9.15); NEUTROPHILS PERCENT AUTO 81 % (41-73); NRBC ABSOLUTE 0.02 K/mm3 (0.00-0.02); NRBC Auto 0.2 /100 WBC (0.0-0.2); Platelet Count 266 K/mm3 (150-400); RDW Coefficient Variation 12.9 % (11.7-14.2); RDW Standard Deviation 42.6 fL (35.1-46.3); Red Blood Cell Count 2.86 M/mm3 (3.80-5.20)
[2021-12-07 05:40] LABS: Albumin, Blood 3.3 g/dL (3.4-5.0); Anion Gap 4 mmol/L (6-16); Blood Urea Nitrogen 34 mg/dL (8-24); Bun/Creatinine Ratio 17.2 (12.0-20.0); CO2, Blood 36 mmol/L (21-32); Calcium, Blood 10.1 mg/dL (8.5-10.1); Chloride, Blood 98 mmol/L (98-108); Creatinine, Blood 1.98 mg/dL (0.40-1.00); Glomerular Filtration Rate 24 (60-); Glucose, Blood 123 mg/dL (70-99); Magnesium, Blood 1.9 mg/dL (1.6-2.4); Phosphorus, Blood 2.3 mg/dL (2.5-4.9); Potassium, Blood 3.6 mmol/L (3.5-5.5); Sodium, Blood 138 mmol/L (136-145)
--- NOTE | 2021-12-07 07:40 | NUR ---
NOC SHIFT SUMMARY 24 HOUR URINE FINISHED AND SUBMITTED TO LAB AT 0015. PER DR MONCADA, PT IS STABLE TO D/C FROM A RENAL STANDPOINT. PT IS ANXIOUS TO LEAVE AND RETURN HOME. NO ISSUES OVERNIGHT.
--- NOTE | 2021-12-07 13:45 | NUR ---
DC SUMMARY PT AxOx4. PLEASANT AND COOPERATIVE WITH CARE. PT IS DISCHARGING HOME TODAY WITH HOME HEALTH. PT GIVEN DISCHARGE INSTRUCTIONS INCLUDING DC MEDICATIONS, FOLLOW UP APPOINTMENTS, AND PATIENT EDUCATION. PT'S DAUGHTER IN ROOM DISCUSSING DISCHARGE. BOTH DENY FURTHER QUESTIONS AT THIS TIME. PT SAFELY ESCORTED OUT VIA WC WITH TRANSPORTATION SOLUTIONS MANAGER.
[2021-12-07] MEDS ORDERED: BUME1 PO (13:55)
[2021-12-07] MEDS ORDERED: OMEP20ER PO (13:56)
[2021-12-07] MEDS ORDERED: LINE600 PO (13:59)
[2021-12-07] MEDS ORDERED: SPIR25 PO (14:00)
== END 2021-12-07 14:20 | disposition home or self-care (01) | DRG 683 ==
LOC: ER 12:39 → MEDS 12:40 → ERHOLD 12:40 → MEDS 22:15
PROVIDERS: Emergency Medicine; Family Medicine; Internal Medicine Nephrology; Physician Assistant; Student in an Organized Health Care Education/Training Program; ADMIT Internal Medicine
DX: N17.9 Acute kidney failure, unspecified (principal); I13.0 Hypertensive heart and chronic kidney disease with heart failure and stage 1 through stage 4 chronic kidney disease, or unspecified chronic kidney disease; J44.1 Chronic obstructive pulmonary disease with (acute) exacerbation; Z68.41 Body mass index [BMI] 40.0-44.9, adult; N18.30 Chronic kidney disease, stage 3 unspecified; E87.6 Hypokalemia; E66.9 Obesity, unspecified; K21.9 Gastro-esophageal reflux disease without esophagitis; Z20.822 Contact with and (suspected) exposure to COVID-19; F41.9 Anxiety disorder, unspecified; Z86.73 Personal history of transient ischemic attack (TIA), and cerebral infarction without residual deficits; D50.9 Iron deficiency anemia, unspecified; I50.9 Heart failure, unspecified; Z99.81 Dependence on supplemental oxygen; E78.5 Hyperlipidemia, unspecified; Z98.890 Other specified postprocedural states; Z87.891 Personal history of nicotine dependence; Z88.0 Allergy status to penicillin; Z88.8 Allergy status to other drugs, medicaments and biological substances; Z79.899 Other long term (current) drug therapy; E83.42 Hypomagnesemia; E83.39 Other disorders of phosphorus metabolism; E86.0 Dehydration; E88.09 Other disorders of plasma-protein metabolism, not elsewhere classified
CPT/HCPCS: 0241U; 36415; 71046; 76770; 78580; 80053; 80069; 81050; 83735; 83880; 84156; 84484; 85025; 85027; 85379; 93005; 93010; 93971; 94640; 94664; 94760; 96372; 96374; 97165; 97530; 99285-25; A9270; A9540; G0378; J0881; J1644; J1940; J3475; J3480; J7030; J7050; J7060; J7512